=== PATIENT | male | born 1940 | race Caucasian/White ===

== ENCOUNTER 2018-04-08 02:56 | Inpatient (IN) | payer OTHER ==
[~2018-04-08] VITALS: Ht 180.3 cm; Wt 81.7 kg
[2018-04-08] VITALS (8 sets, daily range): BP systolic 115–148; BP diastolic 71–80
[~2018-04-08 02:56] MED LIST: CINNAMON PLUS1 EACH PO; FISH OIL + VIT1 EACH PO; OCUVITE ADULT1 EACH PO; OSTEO BI-FLEX1 EAC1 PO; PROSCAR 5MG TABL5 M1 PO; TAMSULOSIN HCL0.4 M1 PO; THERA-M CAPLET1 EACH PO; VITAMIN B-650 M1 PO
--- NOTE | 2018-04-08 03:04 | NUR ---
CANDELLED TRAUMA ACTIVATION PER DR MEJIA
[2018-04-08 04:14] LABS: HEMATOCRIT 44.4 % (42.0-52.0); HEMOGLOBIN 14.6 gm/dL (14.0-18.0); MCHC 32.9 g/dL (28.0-37.0); PLATELET COUNT 174 thou/uL (150-400); RBC 4.72 mil/uL (4.50-6.00); RDW 14.8 % (10.5-14.5)
[2018-04-08 04:21] LABS: ANION GAP 13 mmol/L (7-16); BUN 23 mg/dL (7-18); CALCIUM 9.2 mg/dL (8.5-10.1); CHLORIDE 105 mmol/L (98-107); CO2 24 mmol/L (21-32); CREATININE 1.4 mg/dL (0.7-1.3); GLUCOSE 113 mg/dL (74-106); POTASSIUM 3.7 mmol/L (3.5-5.1); SODIUM 142 mmol/L (136-145)
[2018-04-08 04:30] LABS: URINE BILIRUBIN NEGATIVE (Negative); URINE BLOOD TRACE (Negative); URINE CLARITY CLEAR; URINE COLOR YELLOW; URINE GLUCOSE-RANDOM* NEGATIVE (Negative); URINE KETONES 1+ (Negative); URINE LEUKOCYTES-REFLEX NEGATIVE (Negative); URINE NITRITE-REFLEX NEGATIVE (Negative); URINE PROTEIN (DIPSTICK) TRACE (Negative); URINE SPECIFIC GRAVITY 1.025 (1.005-1.035); URINE UROBILINOGEN 0.2 E.U./dl (0.2-1.0)
[2018-04-08 04:30] LABS: TROPONIN-I <0.06 ng/mL (<0.06)
[2018-04-08 05:27] LABS: ABSOLUTE NEUTROPHILS 8.3 thou/uL (1.4-8.2)
[2018-04-08 05:28] LABS: LARGE PLATELETS RARE; PLATELET ESTIMATE NORMAL
--- NOTE | 2018-04-08 08:12 | NUR ---
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
[2018-04-08] MEDS ORDERED: XARELTO10 MG PO (09:26)
--- NOTE | 2018-04-08 09:47 | EKG ---
[address] [address] ELECTROCARDIOGRAM REPORT Name: JONIISAUROCHRISTINA Zabala Room #: 170-15 ADM IN .R.#: [id number] ������������������ Admission: 04/08/18 ������������������ Attend Phys: Davey Huddleston MD Discharge: ������������������ Date of : 38 Report #: [id number] ����������������������������������������������������������������� [id number] THIS REPORT FOR: //name// [facility] ED Test Date: 2018-04-08 Test Time: 04:14:11 Pat Name: CHRISTINA GIRON Department: Room: 170 Gender: M Fire Support Specialist: TAWANDA : 1940 Requested By: Chucho English Order Number: [id number] MD: Pawan Sahu Measurements Intervals Fletcher Rate: 63 P: 29 LA: 169 QRS: 37 QRSD: 99 T: 42 QT: 448 QTc: 459 Interpretive Statements Sinus rhythm No significant abnormality Compared to ECG 05/21/2013 09:48:54 Atrial premature complex(es) no longer present Electronically Signed On 04-08-2018 9:47:25 PLASTIC EXTRUDING MACHINE OPERATOR by Pawan Sahu [email or web address] ��������������������������������������������� <ELECTRONICALLY SIGNED> ���������������������������������������� By: Pawan Sahu MD, [facility] ��������������������������������������������� 04/08/18 0947 0414 0414 Pawan Sahu MD, [facility] /EPI
[2018-04-09 04:10] VITALS: BP 140/78
[2018-04-09 07:11] VITALS: BP 167/90
--- NOTE | 2018-04-09 12:31 | NUR ---
ASSUMED CARE AT 0700. ALERT TO SELF AND KNOWS HE IS AT THE HOSPITAL HOWEVER, HE DOES NOT KNOW THE HOSPITAL NAME. SEEN BY THERAPY WITH RECOMMENDATIONS FOR A WALKER WITH WHEELS. REQUIES ASSISTANCE TO GET UP FROM CHAIR. ON FALL PRECATIONS FOR FREQUENT FALLS AT HOME. CONSULTED WITH DR MAN WHO SPOKE TO PT'S REGARDING HIS ASSESMENT AND POSSIBLE PLACEMENT TO SKILLED OR LTM. INDEPENDENT WITH MEALS, ASSISTANCE TO URINAL/COMMODE, PT'S HAS BEEN BEDSIDE AT THIS TIME. PER NIGHT NURSE PT WAS IMPULSIVE. PT DOES NOT USE CALL LIGHT. STAFF TO ATICIPATE NEEDS. PLANS TO MOVE PT CLOSER TO NURSING STATIONS ONCE ROOM OPENS.
[2018-04-09 14:07] VITALS: BP 136/69
--- NOTE | 2018-04-09 15:42 | NUR ---
PT ADMITTED RELATED TO FALL AT HOME, UTI. CM REVIEWED CHART AND SPOKE WITH CARE TEAM. CM MET WITH PT AND SPOUSE AT BEDSIDE THIS DAY. INDICATED THAT THEY LIVE IN A HOUSE WITH 2 STEPS TO ENTER AND NO STEPS INSIDE. SHE INDICATED PT HAD BEEN USING A FWW TO ASSIST WITH MOBILITY. SPOUSE INDICATED THAT HAD NEEDED ASSIST WITH [facility] AEROSPACE ENGINEER. SHE INDICATED HE HAD BEEN TO [facility] IN THAT PAST AND THAT THEY HAD USED [facility] THROUGH RIGHT AT HOME. SPOUSE INDICATED THAT THEY MIGHT BE RECEPTIVE TO POST ACUTE CARE STAY. CM TO FOLLOW INDICATED WITH DC PLANNING.
[2018-04-09 18:54] VITALS: BP 137/75
--- NOTE | 2018-04-10 03:16 | NUR ---
PT VERY CONFUSED PT MAKING QUACKING NOISES ALL THROUGHOUT THE NIGHT PT TRIED TO GET UP UNASSISTED MULTIPLE TIMES THROUGHOUT THE NIGHT PT REORIENTATED MULTIPLE TIMES BUT STILL CONFUSED.
[2018-04-10 04:47] VITALS: BP 159/83
[2018-04-10 07:28] VITALS: BP 144/83
--- NOTE | 2018-04-10 12:22 | NUR ---
DISCHARGE PLANNING. ANTICIPATED DISCHARGE FOR TOMORROW. POST ACUTE CARE RECOMMENDED AT DISCHARGE, THEN PATIENT TO TRANSITION TO ASSISTED LIVING. REFERRAL FAXED TO [facility] FOR DISCHARGE PLACEMENT NEEDS. CALL PLACED TO FANY TO NOTIFY, WILL REVIEW REFERRAL AND CONTACT ONCE REFERRAL REVIEW COMPLETE. FOLLOWING TO ASSIST.
--- NOTE | 2018-04-10 15:37 | NUR ---
CHUY WITH [facility] HAD VISITED PT THIS MORNING AND LEFT INFO FOR POSSIBLE ADMISSION. CM VISITED WITH PT AND SPOUSE AND ASKED IF THEY WERE AGREEABLE WIH SHORT TERM POST ACUTE CARE STAY AT [facility] AND THEN TRANSITIONG TO [place] FROM THERE. THEY INDICATED THEY WERE. REFERRAL WAS SENT TO [facility] AND THEY INDICATED THEY ARE ABLE TO ACCEPT PT FOR ADMISSION TOMORROW. CM NOTIFIED PT AND SPOUSE AND THEY ARE AWARE AND AGREEABLE. CHART COPY MADE. ORDERS TO BE FAXED TO REPORT TO BE CALLED TO .
--- NOTE | 2018-04-10 15:45 | NUR ---
ASSUMED CARE 0700. ALERT TO SELF ONLY. DENIES PAIN. VSS. DOES NOT USE CALL LIGHT APPROPRIATELY. STAFF TO ANTCIPATE NEEDS. UP WITH ASSISANTS 1-2 FOR AMBULATIONS WITH GATE BELT AND WALKER. PLANS TO DC TO SNF POSSIBLE TOMORROW. FALL PRECAUTION IN PLACE. BED ALARM SET CALL LIGHT IN REACH.
[2018-04-10 15:53] VITALS: BP 133/77
[2018-04-10 21:10] VITALS: BP 136/78
[2018-04-11 04:22] VITALS: BP 169/96
--- NOTE | 2018-04-11 05:32 | NUR ---
Pt. rested quietly at intervals during the night when checked on during frequent rounds. He is alert and oriented times one. No c/o pain. Bed alarm is on.
[2018-04-11 07:10] VITALS: BP 168/70
[2018-04-11 14:30] VITALS: BP 123/72
--- NOTE | 2018-04-11 15:07 | NUR ---
Pt discharged to rehab facility. Pt A&O to self, no SOA or distress, IV removed, tele removed, pt has all belongings.
== END 2018-04-11 16:10 | DRG 56 ==
LOC: ER 02:56 → 4W 04:45 → EROBS 04:45 → 4W 18:54
PROVIDERS: Emergency Medicine; ADMIT Hospitalist
DX: G20 Parkinson's disease (principal); E43 Unspecified severe protein-calorie malnutrition; G91.9 Hydrocephalus, unspecified; S00.03XA Contusion of scalp, initial encounter; S40.012A Contusion of left shoulder, initial encounter; R26.9 Unspecified abnormalities of gait and mobility; G30.9 Alzheimer's disease, unspecified; F02.80 Dementia in other diseases classified elsewhere, unspecified severity, without behavioral disturbance, psychotic disturbance, mood disturbance, and anxiety; R29.6 Repeated falls; Z96.1 Presence of intraocular lens; Z96.643 Presence of artificial hip joint, bilateral; N40.0 Benign prostatic hyperplasia without lower urinary tract symptoms; N18.9 Chronic kidney disease, unspecified; Z96.612 Presence of left artificial shoulder joint; W18.00XA Striking against unspecified object with subsequent fall, initial encounter; Y93.89 Activity, other specified; Y92.092 Bedroom in other non-institutional residence as the place of occurrence of the external cause; Z90.79 Acquired absence of other genital organ(s); Z86.718 Personal history of other venous thrombosis and embolism; Y99.8 Other external cause status; Z98.42 Cataract extraction status, left eye; Z98.41 Cataract extraction status, right eye; Z79.01 Long term (current) use of anticoagulants; Z79.899 Other long term (current) drug therapy; Z88.5 Allergy status to narcotic agent
CPT/HCPCS: 10045